=== PATIENT | male | born 1945 | race African-American/Black ===

== ENCOUNTER 2018-08-07 12:32 | Emergency (ER) | payer MEDICARE, MEDICAID ==
[~2018-08-07 12:32] MED LIST: ISOVUE-370 76%-LOCM 1 ML ONE
[2018-08-07 13:50] LABS: Hemoglobin 9.4 g/dL (14.0-18.0); Mean Corpuscular HGB CONC 31.6 g/dL (32.0-36.0); Mean Platelet Volume 8.7 fL (7.4-10.4); Platelet Count 191 thou/uL (130-400); RBC Distribution Width 14.7 % (11.5-14.5); Red Blood Cell (RBC) Count 3.25 mill/uL (4.70-6.10); White Blood Cell (WBC) Count 6.4 thou/uL (4.8-10.8)
[2018-08-07 14:21] LABS: ALT (SGPT) Less than 7 U/L (8-55); AST (SGOT) 28 U/L (5-34); Albumin 1.4 g/dL (3.4-4.8); Alkaline Phosphatase 124 U/L (40-150); Anion Gap 11 mmol/L (10-20); BUN (Urea Nitrogen) 14 mg/dL (8.4-25.7); Bilirubin, Total 0.8 mg/dL (0.2-1.2); Calc. Creatinine Clearance 0 mL/min (70-130); Calcium 7.3 mg/dL (7.8-10.44); Carbon Dioxide 30 mmol/L (23-31); Chloride 102 mmol/L (98-107); Estimated GFR-MDRD 69; Globulin 4.3 g/dL (2.4-3.5); Glucose 73 mg/dL (83-110); Potassium 4.1 mmol/L (3.5-5.1); Protein, Total 5.7 g/dL (5.8-8.1); Sodium 139 mmol/L (136-145)
[2018-08-07 14:37] LABS: Anisocytosis SLIGHT = 6-15 cells (100X) (0-5/hpf); Hypochromia SLIGHT = 6-15 cells (100X) (0-5/hpf); Lymphocytes 9 % (21-51); MDiff Complete? YES; Monocytes 4 % (0-10); Neutrophil 87 % (42-75); Platelet Morphology Comment Appears Adequate; Target Cells SLIGHT = 2-5 cells (100X) (0-1/hpf)
--- NOTE | 2018-08-07 15:37 | CT ---
T Abdomen Pelvis W Con: 08/07/2018 1:09 PM CLINICAL INFORMATION: Constipation. Closure colostomy site. No bowel movement, x3 days. COMPARISON: None. Procedure: Multiple contiguous axial images were obtained and a CT of the abdomen and pelvis with IV contrast. C oronal reformats were performed. FINDINGS: Lower Chest: Small right and trace left-sided pleural effusion. Consolidation of the right lower lobe may be due to atelectasis, aspiration or pneumonia. 2.4 x 1.8 cm mass in the left lower lobe. Vessels: There is a dissection involving the visualized descending thoracic aorta, abdominal aorta, a ortic bifurcation with extension of the dissection into the left common iliac artery and visualized e xternal iliac artery. Based on images, it is difficult to discern what is the true lumen versus the f alse lumen. Abdomen: Portal vein:Suboptimal evaluation Gallbladder: Surgically absent Liver: within normal limits. Pancreas: Mild atrophy. No obvious masses Spleen: within normal limits. Adrenals: Left adrenal gland is unremarkable. Hypodense mass associated with the right adrenal gland, measuring 3.1 x 1.7 cm with an attenuation coefficient of 27 Hounsfield units. Incomplete evaluation . Kidneys: Symmetric enhancement. No obstructive uropathy. 6 mm nonobstructing calculus in the right in trarenal collecting system. Peritoneum: No mass, lymphadenopathy, free air or free fluid. Bowel: Gastric mucosa, duodenum and multiple normal caliber small bowel loops are identified. Ileocec al junction is normal. Normal caliber appendix. Colon is unremarkable. Left lower quadrant diverticul ar colostomy is identified. No evidence of colonic obstruction. Mesentery and Retroperitoneum: No enlarged mesenteric or retroperitoneal lymph nodes. Abdominal Wall: Left lower quadrant colostomy. No significant peristomal hernia. Nonspecific strandin g of the subcutaneous fat. No evidence of abscess. Pelvis: Pelvis no mass, nephropathy, free air or free fluid. Bladder: within normal limits. Bones: within normal limits. IMPRESSION: 1. Dissection in the visualized aorta extending into the aortic bifurcation and left iliac artery as described above. 2. Mass in the left lower lobe, incompletely evaluated. 3. Consolidation in the right lower lobe which may be due to atelectasis, pneumonia or aspiration 4. Bilateral pleural effusion. 5. Diverting colostomy in the left lower quadrant without associated obstruction or abscess. 6. Indeterminate right adrenal nodule. 7 Results were discussed with Lore Bosch 08/07/2018 at 3:33 PM. Code CR Transcribed Date/Time: 08/07/2018 4:08 PM
--- NOTE | 2018-08-07 16:38 | CT ---
CT ANGIOGRAM THORAX WITH CONTRAST: 08/07/18 HISTORY: 73-year-old male with aortic dissection. TECHNIQUE: Injection of Isovue. Arterial bolus chasing technique scan performed from thoracic inlet to upper abdomen. Coronal and sagittal 3D MIP reconstructions. FINDINGS: There is intimal flap beginning at the most proximal aspect of the descending thoracic aorta, close t o the posterior aspect of the aortic arch. This propagates inferiorly, with dense contrast material i n both the true lumen and false lumen of the dissection. At the thoraco-abdominal junction, there is a change in orientation of the intimal flap. There is fusiform dilation of the descending thoracic ao rta with short axis diameter of approximately 4.1 cm. There is also fusiform dilation of the posterio r aspect of the aortic arch, with short axis diameter of 4.8 cm. There is no involvement by the disse ction of the origins of the left subclavian artery, left common carotid artery, or innominate artery. There is a large right pleural effusion occupying approximately three quarters volume of the right he mithoracic cavity. There is associated severe total passive atelectasis, of the right lower lobe, and milder passive atelectasis of the lateral aspect of the right upper lobe. There is a smaller left pl eural effusion that occupies approximately 15 to 20% volume of the left hemithoracic cavity. Abutting the anterior aspect of the left pleural effusion, there is an irregularly shaped low attenuation mas s-like structure in the left lower lobe measuring approximately 2.5 x 2.5 x 3.5 cm. There is colonic interposition in the right upper quadrant of the abdomen. No pericardial effusion. Nonspecific multip le mildly enlarged mediastinal lymph nodes. Central pulmonary arteries are dilated, raising the possi bility of pulmonary arterial hypertension. There is absence of blood flow in a left lower lobe pulmon amos vessel, beginning at the hilum. It is uncertain whether this is a pulmonary vein branch or pulmon amos artery branch. No thrombus in the central pulmonary arteries. IMPRESSION: 1. Jose type B, DeBakey type III aortic dissection. 2. 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 3. Bilateral pleural effusions, right much larger than left. 4. Total atelectasis of the right lower lobe. 5. A mass-like density in the left lower lobe abutting the small left pleural effusion. This radha l require further evaluation with PET scan, on an elective basis. POS: C
== END 2018-08-07 17:23 | disposition home or self-care (01) ==
LOC: ERS 12:32
DX: I71.02 Dissection of abdominal aorta (principal); Z43.3 Encounter for attention to colostomy; I10 Essential (primary) hypertension
CPT/HCPCS: 71275; 74177; 80053; 84484; 85025; 93005; Q9966

== ENCOUNTER 2018-08-26 17:13 | Inpatient (IN) | payer MEDICARE, MEDICAID ==
[2018-08-26 18:31] LABS: #Lymphocytes 1.9 thou/uL (1.20-3.40); #Neutrophils 5.1 thou/uL (1.40-6.50); %Basophils 0.5 % (0.0-1.0); %Eosinophils 0.5 % (0.0-10.0); %Lymphocytes 23.2 % (21.0-51.0); %Monocytes 12.2 % (0.0-10.0); %Neutrophils 63.5 % (42.0-75.0); Hemoglobin 8.6 g/dL (14.0-18.0); Mean Corpuscular HGB CONC 31.5 g/dL (32.0-36.0); Mean Corpuscular Hemoglobin 27.8 pg (27.0-31.0); Mean Corpuscular Volume 88.3 fL (78.0-98.0); Platelet Count 178 thou/uL (130-400); RBC Distribution Width 16.3 % (11.5-14.5)
--- NOTE | 2018-08-26 18:31 | RAD ---
CHEST ONE VIEW: History: Hypertension, edema in the hands. FINDINGS: There is a moderate loculated right sided pleural effusion. Left lung is clear. There is mild cardiom egaly. No acute osseous abnormality is evident. IMPRESSION: 1. Moderate right pleural effusion with mild loculation. 2. Right basilar opacity possibly related to volume loss. 3. Persistent mild cardiomegaly. POS: BH
[2018-08-26] MEDS ORDERED: Sodium Chloride 0.9% 100 ML ONE (18:48)
[2018-08-26] MEDS ORDERED: Piperacillin/Tazobactam 4.5 GM VIAL ONE ×2 (18:48→19:37)
[2018-08-26] MEDS ORDERED: Vancomycin HCl 1.75 GM in Sodium Chloride 0.9% 500 ML IVPB SCH (19:00)
[2018-08-26 19:09] LABS: ALT (SGPT) 16 U/L (8-55); AST (SGOT) 24 U/L (5-34); Albumin 1.4 g/dL (3.4-4.8); Alkaline Phosphatase 159 U/L (40-150); Anion Gap 12 mmol/L (10-20); BUN (Urea Nitrogen) 29 mg/dL (8.4-25.7); Bilirubin, Total 1.7 mg/dL (0.2-1.2); CK (CPK) 83 U/L (30-200); Calc. Creatinine Clearance 0 mL/min (70-130); Calcium 7.3 mg/dL (7.8-10.44); Carbon Dioxide 29 mmol/L (23-31); Chloride 93 mmol/L (98-107); Estimated GFR-MDRD 36; Globulin 4.3 g/dL (2.4-3.5); Glucose 64 mg/dL (83-110); Potassium 3.3 mmol/L (3.5-5.1); Protein, Total 5.7 g/dL (5.8-8.1); Sodium 131 mmol/L (136-145)
[2018-08-26] MEDS ORDERED: Acetaminophen 325 MG TAB PO PRN (22:13)
[2018-08-26] MEDS ORDERED: Sodium Chloride 0.9% 500 ML IV SCH (23:00)
[2018-08-26] MEDS: Lactated Ringer's 1,000 ML IV SCH ×2 (23:06→23:25)
[2018-08-26] MEDS ORDERED: Sodium Chloride 0.9% 1,000 ML IV SCH (23:45)
[2018-08-26] MEDS ORDERED: cefTRIAXone\\ROCEPHIN 1 GM in Sodium Chloride 0.9% 100 ML IVPB SCH (23:45)
[2018-08-27 01:39] LABS: Lactic Acid 2.1 mmol/L (0.5-2.2)
[2018-08-27] MEDS ORDERED: Azithromycin 500 MG in Sodium Chloride 0.9% 250 ML 250 ML IVPB SCH (02:00)
--- NOTE | 2018-08-27 02:23 | HP ---
CHIEF COMPLAINT: Wheezing. HISTORY OF PRESENT ILLNESS: This patient is a 73-year-old male, who presented via the emergency department. The patient has some difficulty explaining his full history, but apparently a couple of years ago, he had some cardiac issues which he describes as a "tear" in his heart. He reports that he was referred to [place] , was discharged back home and ended up going back to [place] again for the same problem. Subsequent to that, the patient reports that the next thing he remembered was he was in a rehab in [place]. He has been in and out of the hospital ever since. He reports that he had to have a diverting colostomy in order to try to help heal a significant decubitus ulcer of the sacrum and subsequently had some complication with that. He describes as it trying to close up. He had [facility] come out to evaluate and work with him today with a wound VAC on his decubitus. He noted that he had been feeling like he had some wheezing and he asked them to evaluate him. They felt he was wheezing as well. They called his PCP, Dr. Dylan Franco, who sent him to the emergency department. The patient denies any fevers, chills, chest pains. He reports he only has a very mild cough. REVIEW OF SYSTEMS: Notable for a frequent nocturia. Other than that, all systems were reviewed, all pertinent positives and negatives noted in the HPI. PAST MEDICAL HISTORY: Notable for hypertension, degenerative joint disease, "tear" in his heart, sacral decubitus ulcer. PAST SURGICAL HISTORY: Colostomy. FAMILY HISTORY: Brother with diabetes. His mother when he was 4 weeks old. His father left home. He does not know anything about him. SOCIAL HISTORY: The patient quit smoking 4 to 5 years ago, but states he never smoked heavily. Denies alcohol. He is . He is full code. His sister Marva is his surrogate decision maker should that become necessary. ALLERGIES: NONE. CURRENT MEDICATIONS: 1. Torsemide 20 mg daily. 2. Potassium 10 mEq daily. 3. Cipro 500 b.i.d. 4. Protonix 40 mg daily. 5. Tylenol No. 3 p.r.n. 6. Reglan 10 mg q.i.d. 7. Folic acid 1 mg p.o. daily. 8. Proscar 5 mg daily. PHYSICAL EXAMINATION: VITAL SIGNS: Temperature 97.8, pulse 90, respirations 87, O2 saturation 100% on room air, and blood pressure 99/52. GENERAL APPEARANCE: Age-appropriate male, in no distress. He is awake, alert, oriented, pleasant, and cooperative. HEENT: PERRL. No OP lesions. NECK: Supple and symmetric. HEART: Regular rate and rhythm without murmurs, gallops, or rubs. LUNGS: Reveal only scattered rales. I do not appreciate any wheezing right now. ABDOMEN: Soft, nontender, and nondistended. Positive bowel sounds. No masses. No organomegaly. Left lower quadrant stoma in place appears healthy. EXTREMITIES: He has generalized atrophy and some mild puffy, nonpitting edema of the upper and lower extremities. He does have some movement in his lower extremities, but minimal, just generally weak. NEUROLOGIC: Weakness is noted. PSYCHIATRIC: The patient has normal affect and behavior. LABORATORY DATA AND DIAGNOSTIC STUDIES: White count 8.0, hemoglobin 8.6, and platelets 178. Sodium 131, potassium 3.3, chloride 93, CO2 is 29, BUN 29, creatinine is 2.17, glucose 64, lactic acid is 2.2, calcium 7.3, total bilirubin 1.7, AST 24, ALT 16, and alkaline phosphatase 159. Troponin 0.02. BNP 95.8, albumin 1.4. Chest x-ray shows moderate right pleural effusion with mild loculation, right basilar opacity, possibly related to volume loss and persistent cardiomegaly. IMPRESSION AND PLAN: 1. Probable loculated effusion and pneumonia on the right side. The patient had some borderline low blood pressures in the emergency department, but he does not appear to be febrile and does not have a significant leukocytosis. We will continue with antibiotics. We will change him to Rocephin and azithromycin for community-acquired pneumonia and follow up on the x-ray. 2. Hypotension in the emergency department. He appears to have some acute renal insufficiency, unclear if this may be some degree of dehydration. He has received fluid bolus. We will continue to hydrate and follow his blood pressures. 3. Acute renal insufficiency on chronic kidney disease. The patient appears to have chronic kidney disease, stage 3. His baseline creatinine is typically around 1.2. It is now significantly elevated and his creatinine clearance has dropped off. We will hydrate and see how he responds. 4. Anemia. The patient appears to have chronic anemia and his hemoglobin is inline with his previous numbers. 5. Dehydration. Hydrate. Follow labs and blood pressure. 6. Hypoalbuminemia, unclear etiology. The patient reports that he has been eating and drinking well. May be related to his chronic wound. We will continue monitor his intake. 7. Hypokalemia. We will give p.o. repletion. 8. Hyponatremia, likely due to renal insufficiency and some dehydration on diuretics. These are being held and the patient is being hydrated. We will continue to follow. Job ID: [id number] [facility]
[2018-08-27] MEDS: Acetaminophen/Codeine 30-300mg Tablet PO PRN ×2 (05:41→22:15)
[2018-08-27 06:44] LABS: #Eosinphils 0.1 thou/uL (0.0-0.7); #Lymphocytes 1.8 thou/uL (1.20-3.40); #Monocytes 1.1 thou/uL (0.11-0.59); #Neutrophils 5.4 thou/uL (1.40-6.50); %Basophils 0.6 % (0.0-1.0); %Eosinophils 1.2 % (0.0-10.0); %Lymphocytes 21.2 % (21.0-51.0); %Monocytes 12.8 % (0.0-10.0); %Neutrophils 64.2 % (42.0-75.0); Hemoglobin 7.5 g/dL (14.0-18.0); Mean Corpuscular HGB CONC 32.3 g/dL (32.0-36.0); Mean Corpuscular Hemoglobin 28.5 pg (27.0-31.0); Mean Corpuscular Volume 88.1 fL (78.0-98.0); Mean Platelet Volume 8.6 fL (7.4-10.4); Platelet Count 156 thou/uL (130-400); RBC Distribution Width 16.5 % (11.5-14.5); Red Blood Cell (RBC) Count 2.63 mill/uL (4.70-6.10); White Blood Cell (WBC) Count 8.4 thou/uL (4.8-10.8)
[2018-08-27 06:58] LABS: Anion Gap 13 mmol/L (10-20); BUN (Urea Nitrogen) 30 mg/dL (8.4-25.7); Calc. Creatinine Clearance 43 mL/min (70-130); Calcium 6.8 mg/dL (7.8-10.44); Carbon Dioxide 26 mmol/L (23-31); Chloride 97 mmol/L (98-107); Estimated GFR-MDRD 40; Glucose 64 mg/dL (83-110); Potassium 3.2 mmol/L (3.5-5.1); Sodium 133 mmol/L (136-145)
[2018-08-27] MEDS ORDERED: Bisacodyl 5 MG TAB PO PRN (07:23)
[2018-08-27] MEDS ORDERED: Acetaminophen 500 MG TAB PO PRN (07:23)
[2018-08-27] MEDS ORDERED: Artificial Tears 18 DROP/0.9 ML EA EYE PRN (07:23)
[2018-08-27] MEDS ORDERED: Loperamide HCl 2 MG CAP PO PRN (07:23)
[2018-08-27] MEDS ORDERED: Cepastat Lozenges 1 LOZ PO PRN (07:23)
[2018-08-27] MEDS ORDERED: Loratadine 10 MG TAB PO PRN (07:23)
[2018-08-27] MEDS ORDERED: Metoclopramide HCl 10 MG/2 ML VIAL IVP PRN (07:23)
[2018-08-27] MEDS ORDERED: Calcium Carbonate 500 MG ChewTAB PO PRN (07:23)
[2018-08-27] MEDS ORDERED: Eucerin (Mineral Oil/Petrolatum,White) 30 gm Jar TOP PRN (07:23)
[2018-08-27] MEDS ORDERED: Temazepam 15 MG CAP PO PRN (07:23)
[2018-08-27] MEDS ORDERED: Sodium Chloride 0.65% Nasal 44 ML BOT EA NARE PRN (07:23)
[2018-08-27] MEDS ORDERED: hydrALAZINE 20 MG/ML VIAL SLOW IVP PRN (07:23)
[2018-08-27 08:10] LABS: Magnesium 1.3 mg/dL (1.6-2.6); Phosphorus 3.9 mg/dL (2.3-4.7)
[2018-08-27] MEDS: Potassium Chloride 30 MEQ in Sodium Chloride 0.9% 1,000 ML IV SCH ×2 (09:02→21:48)
[2018-08-27] MEDS: Folic Acid 1 MG TAB PO SCH (09:08)
[2018-08-27] MEDS: Enoxaparin Sodium 30 MG/0.3 ML SYRINGE SC SCH (09:08)
[2018-08-27] MEDS: Potassium Chloride 10 MEQ TAB PO SCH (09:08)
[2018-08-27] MEDS: Finasteride 5 MG TAB PO SCH (09:08)
[2018-08-27] MEDS: Metoclopramide HCl 10 MG TAB PO SCH ×4 (09:09→19:59)
[2018-08-27] MEDS: Pantoprazole 40 MG GRANULES PACKET PO SCH (09:09)
[2018-08-27] MEDS ORDERED: Potassium Chloride 20 MEQ TAB PO SCH (09:30)
[2018-08-27] MEDS ORDERED: Potassium Phosphate 30 MMOL in Sodium Chloride 0.9% 500 ML IVPB SCH (09:30)
[2018-08-27] MEDS ORDERED: Magnesium Sulfate 3 GM in Sodium Chloride 0.9% 100 ML IVPB SCH (09:30)
[2018-08-27] MEDS: Cefepime 1 GM in Sodium Chloride 0.9% 100 ML IVPB SCH ×2 (09:54→19:59)
--- NOTE | 2018-08-27 10:05 | CON ---
DATE OF CONSULTATION: HISTORY OF PRESENT ILLNESS: Manoj Salmon is a 73-year-old gentleman from [place], [place], who presented with wheezing for the last several days. He was here about 2 weeks ago with abdominal pain where CT abdomen and chest were done. He has a colostomy in place since February 2018. He said he has limitation to activity. He was then eventually discharged home and then he comes back to the ER with some wheezing. His CT abdomen at that time showed a mass in the left lower lobe, consolidation in the right lower lobe, atelectasis, pneumonia, bilateral pleural effusion, and a colostomy in place. He has smoked a pack a day for most of his life. Quit smoking 5 years ago. PAST MEDICAL HISTORY: Pertinent for hypertension, COPD, severe deconditioning, and reflux. PAST SURGICAL HISTORY: As outlined includes previous decubitus. HOME MEDICATIONS: Includes Demadex 20, potassium, Reglan 10 four times a day, Proscar 5 and Protonix. REVIEW OF SYSTEMS: Otherwise difficult to obtain, but otherwise 10 point negative. PHYSICAL EXAMINATION: VITAL SIGNS: Saturations 100% on room air, respiratory rate 18, temperature 97, pulse 88, blood pressure 90/55. CHEST: Decreased breath sounds. No wheezing. CARDIAC: Normal S1, S2. No gallops. ABDOMEN: No masses. LABORATORY DATA: Creatinine is 2.0, H and H 7.5 and 25, platelet count is normal. IMPRESSION: 1. Right pleural effusion, parapneumonic versus congestive heart failure. 2. Left lower lung mass. 3. Colostomy. 4. Chronic anemia. 5. Azotemia. PLAN: Continue present antibiotics. Await results of the echo. Consider thoracentesis of the right chest. Regarding the left lung mass, further workup when he is stable. This option would be a CT-guided biopsy. Consider PET scan on outpatient basis. Job ID: [id number]
--- NOTE | 2018-08-27 10:36 | RAD ---
EXAM: XR Chest Rt Lat Decub Only PROVIDED CLINICAL HISTORY: Right pleural effusion. COMPARISON: Portable upright AP chest x-ray on 08/26/2018 FINDINGS: There is limited evaluation of the most lateral right chest due to multiple overlying structures and secondary to difficulty in positioning the patient. However, there is evidence of a right pleural effusion and elevation the right hemidiaphragm. Although the most lateral chest is difficult to adequ ately evaluate, there is suggestion of layering of pleural fluid along the right lateral chest. Parenchymal changes are seen at the left lung base which may be related to atelectasis versus pneumon itis. Cardiac silhouette is magnified by projection. Pulmonary vasculature is within normal limits IMPRESSION: Limited evaluation due to difficulty in positioning the patient, but again noted is elevation of the right hemidiaphragm with right pleural effusion. However, although there is limited positioning, images suggest that there is pleural fluid layering along the lateral right chest.
[2018-08-27] MEDS ORDERED: Dexamethasone 4 mg/ml Vial SLOW IVP SCH (12:45)
--- NOTE | 2018-08-27 13:45 | PDOC.PN ---
- Subjective Encounter Start Date: 08/27/18 Encounter Start Time: 10:15 -: old records requested/rev pt has low BP but he is asymptomatic, he denies dizziness, chest pain or dyspnea - Objective Resuscitation Status - Order Detail: 08/26/18 23:35 Resuscitation Status Routine Resuscitation Status: FULL: Full Resuscitation MAR Reviewed: Yes Vital Signs & Weight: Vital Signs (12 hours) Temp Pulse Resp BP Pulse Ox 08/27/18 13:29 85 80/47 L 99 08/27/18 12:26 85 77/41 L 08/27/18 12:00 68/34 L 08/27/18 11:21 106/55 L 08/27/18 10:54 97.7 F 88 15 81/51 L 96 08/27/18 08:34 100 08/27/18 08:00 97.8 F 88 18 90/55 L 100 08/27/18 04:25 98.6 F 87 18 95/54 L 99 Weight Admit Weight 196 lb 1.6 oz Weight 201 lb 1.6 oz Result Diagrams: 08/27/18 06:09 08/27/18 06:09 Radiology Reviewed by me: Yes EKG Reviewed by me: Yes Phys Exam - Physical Examination Constitutional: NAD HEENT: PERRLA, moist MMs, sclera anicteric Neck: no JVD, supple Respiratory: no wheezing, no rales, no rhonchi reduced air entry at base Cardiovascular: RRR, no significant murmur, no rub Gastrointestinal: soft, non-tender, no distention, positive bowel sounds Musculoskeletal: pulses present, edema present Neurological: non-focal, moves all 4 limbs Lymphatic: no nodes Psychiatric: normal affect Skin: normal turgor Deviation from normal: wound vac in place Dx/Plan (1) Acute kidney failure Status: Acute (2) Anemia, normocytic normochromic Code(s): D64.9 - ANEMIA, UNSPECIFIED Status: Acute (3) Bilateral pleural effusion Code(s): J90 - PLEURAL EFFUSION, NOT ELSEWHERE CLASSIFIED Status: Acute (4) Consolidation of right lower lobe of lung Code(s): J18.1 - LOBAR PNEUMONIA, UNSPECIFIED ORGANISM Status: Acute (5) Decubitus ulcer Code(s): L89.90 - PRESSURE ULCER OF UNSPECIFIED SITE, UNSPECIFIED STAGE Status : Acute (6) Hypoalbuminemia Code(s): E88.09 - OT DISORDERS OF PLASMA-PROTEIN METABOLISM, NEC Status: Acute (7) Hypokalemia Code(s): E87.6 - HYPOKALEMIA Status: Acute (8) Hypomagnesemia Code(s): E83.42 - HYPOMAGNESEMIA Status: Acute (9) Hyponatremia Code(s): E87.1 - HYPO-OSMOLALITY AND HYPONATREMIA Status: Acute (10) Hypotension Status: Acute (11) Left lower lobe pulmonary nodule Code(s): R91.1 - SOLITARY PULMONARY NODULE Status: Acute (12) Type 2 dissection of thoracic aorta Code(s): I71.01 - DISSECTION OF THORACIC AORTA Status: Acute (13) Colostomy in place Code(s): Z93.3 - COLOSTOMY STATUS Status: Chronic (14) Bedbound Code(s): Z74.01 - BED CONFINEMENT STATUS Status: Chronic - Plan cont current plan of care, continue antibiotics * monitor renal function * check urine protein and creatinine ratio * consult pulmonary * consult CV surgery for dissection type-2. * get echo today * wound care * case coordinator for placement * replace potassium with IVF * replace magnesium * continue cefepime and levaquin * nutritional support * give decadron * check cortisol Review of Systems - Review of Systems Constitutional: weakness. negative: fever, chills, sweats, malaise, other Eyes: negative: Pain, Vision Change, Conjunctivae Inflammation, Eyelid Inflammation, Redness, Other ENT: negative: Ear Pain, Ear Discharge, Nose Pain, Nose Discharge, Nose Congestion, Mouth Pain, Mouth Swelling, Throat Pain, Throat Swelling, Other Respiratory: negative: Cough, Dry, Shortness of Breath, Hemoptysis, SOB with Excertion, Pleuritic Pain, Sputum, Wheezing Cardiovascular: edema. negative: chest pain, palpitations, orthopnea, paroxysmal nocturnal dyspnea, light headedness, other Genitourinary: negative: Dysuria, Frequency, Incontinence, Hematuria, Retention , Other Musculoskeletal: negative: Neck Pain, Shoulder Pain, Arm Pain, Back Pain, Hand Pain, Leg Pain, Foot Pain, Other Skin: negative: Rash, Lesions, Usman, Bruising, Other - Medications/Allergies Allergies/Adverse Reactions: Allergies Allergy/AdvReac Type Severity Reaction Status Date / Time No Known Drug Allergies Allergy Verified 08/26/18 22:55 Medications: Current Medications Acetaminophen (Tylenol) 500 mg PO Q6H PRN PRN Reason: Mild Pain (1-3) Acetaminophen/Codeine Phosphate (Tylenol #3) 1 tab PO Q6H PRN PRN Reason: PAIN 4-10 Last Admin: 08/27/18 05:41 Dose: 1 tab Artificial Tears (Tears Naturale) 2 drop EA EYE PRN PRN PRN Reason: Dry Eyes Bisacodyl (Dulcolax) 10 mg PO DAILYPRN PRN PRN Reason: Constipation Calcium Carbonate (Tums) 1,000 mg PO Q4H PRN PRN Reason: Heartburn or Indigestion Dexamethasone (Decadron) 4 mg SLOW IVP NOW [facility] Stop: 08/27/18 14:00 Last Admin: 08/27/18 13:15 Dose: 4 mg Enoxaparin Sodium (Lovenox) 30 mg SC 0900 [facility] Last Admin: 08/27/18 09:08 Dose: 30 mg Finasteride (Proscar) 5 mg PO DAILY [facility] Last Admin: 08/27/18 09:08 Dose: 5 mg Folic Acid (Folvite) 1 mg PO DAILY [facility] Last Admin: 08/27/18 09:08 Dose: 1 mg Guaifenesin (Robitussin Sf) 200 mg PO Q4H PRN PRN Reason: Cough Hydralazine HCl (Apresoline) 10 mg SLOW IVP Q4H PRN PRN Reason: SBP > 180 and HR < 70 Potassium Chloride 30 meq/ (Sodium Chloride) 1,015 mls @ 75 mls/hr IV .[id number] [facility] Last Admin: 08/27/18 09:02 Dose: 1,015 mls Cefepime HCl 1 gm/ Sodium (Chloride) 100 mls @ 200 mls/hr IVPB Q12HR [facility] Last Admin: 08/27/18 09:54 Dose: 100 mls Levofloxacin 250 mg/ Device 50 mls @ 100 mls/hr IVPB Q24HR [facility] Last Admin: 08/27/18 09:03 Dose: 50 mls Loperamide HCl (Imodium) 2 mg PO PRN PRN PRN Reason: Diarrhea/Loose Stools Loratadine (Claritin) 10 mg PO DAILYPRN PRN PRN Reason: Sinus Symptoms Metoclopramide HCl (Reglan) 10 mg PO QID [facility] Last Admin: 08/27/18 13:15 Dose: 10 mg Metoclopramide HCl (Reglan) 5 mg IVP Q4H PRN PRN Reason: Nausea Midodrine (Proamatine) 5 mg PO TID [facility] Mineral Oil/White Petrolatum (Eucerin Cream) 0 gm TOP BIDPRN PRN PRN Reason: Dry Skin Pantoprazole Sodium (Protonix) 40 mg PO DAILY [facility] Last Admin: 08/27/18 09:09 Dose: 40 mg Potassium Chloride (Klor-Con 10) 10 meq PO DAILY [facility] Last Admin: 08/27/18 09:08 Dose: 10 meq Sodium Chloride ([place] Nasal [place] 0.65%) 0 ml EA NARE QIDPRN PRN PRN Reason: Nasal Congestion Sodium Chloride (Flush - Normal Saline) 10 ml IVF Q12HR [facility] Last Admin: 08/27/18 09:09 Dose: 10 ml Sodium Chloride (Flush - Normal Saline) 10 ml IVF PRN PRN PRN Reason: Saline Flush Temazepam (Restoril) 15 mg PO HSPRN PRN PRN Reason: Insomnia Throat Lozenges (Cepastat Lozenges) 1 mamadou PO Q2H PRN PRN Reason: Sore Throat
[2018-08-27 15:04] LABS: Bilirubin Small (Negative); Blood, Urine Large (Negative); Clarity CLOUDY (Clear); Glucose, Urine (Dipstick) Negative (Negative); Leukocyte Large (Negative); Nitrite Negative (Negative); Protein, Urine (Dipstick) Trace mg/dL (Neg-Trace); Specific Gravity, Urine 1.018 (1.002-1.036)
[2018-08-27 15:07] LABS: Pathc Cast-AUWi Flag 1.08 (0-2.49); Squamous Epithelial 0-3 HPF (0-3); Yeast-AUWi Flag 180.5 (0-25.0)
[2018-08-27 15:21] LABS: Creatinine, Urine 146.11 mg/dL (63-166)
[2018-08-27 15:24] LABS: Bacteria/HPF 3+ HPF (None Seen); Hyaline Casts/LPF 0-3 HYALINE CAST LPF (0-3 Hyaline); Yeast-All Forms None Seen HPF (None Seen)
[2018-08-27] MEDS: Midodrine HCl 5 MG TAB PO SCH ×2 (15:24→19:59)
[2018-08-27] MEDS: Diabetic Tussin 200 MG/10 ML UDCUP PO PRN (19:59)
--- NOTE | 2018-08-27 22:25 | CON ---
DATE OF CONSULTATION: 08/27/2018 REQUESTING PHYSICIAN: Dr. Dumont. CHIEF COMPLAINT: Wheezing. HISTORY OF PRESENT ILLNESS: The patient is a 73-year-old male with a known type 3 aortic dissection, who presented with several days of wheezing. He has been admitted to the hospital and overnight he feels much better. He denies any back pain, and as when I saw him in May of this year, his blood pressures have been under excellent control overnight and through today, his systolic blood pressures have been from about 95 to 110. PAST MEDICAL HISTORY: Significant for hypertension. He had his aortic dissection in January of 2018. During his recovery from that illness, apparently became quite debilitated and underwent a diverting colostomy to deal with a decubitus ulcer. MEDICATIONS: His home medications are listed as; 1. Demadex. 2. Potassium. 3. Protonix. 4. Reglan. 5. Folate. 6. Proscar. 7. Cipro. 8. Tylenol No. 3. When I saw him in May, he was also on Lopressor, Norvasc, and hydralazine. ALLERGIES: HE DENIES ANY MEDICAL ALLERGIES. FAMILY HISTORY: Significant for diabetes in a brother. SOCIAL HISTORY: He smoked up until 4 or 5 years ago. PHYSICAL EXAMINATION: GENERAL: He is a pleasant black gentleman in no distress and appears to feel fine. VITAL SIGNS: Temperature is 97.4, heart rate is 86, blood pressure 106/55. LUNGS: Clear breath sounds. HEART: Regular rate and rhythm. IMAGING: His chest x-ray shows a right-sided effusion with suggestion of mass on the left chest. IMPRESSION AND RECOMMENDATIONS: There is really nothing I have to add on this patient's care. I presume he is being followed in [facility] where his dissection was originally managed. Job ID: [id number]
[2018-08-28 06:47] LABS: INR-International Normal Ratio 1.5; Prothrombin Time 17.7 SEC (12.0-14.7)
[2018-08-28 06:48] LABS: #Lymphocytes 0.9 thou/uL (1.20-3.40); #Monocytes 0.7 thou/uL (0.11-0.59); #Neutrophils 5.5 thou/uL (1.40-6.50); %Basophils 0.2 % (0.0-1.0); %Eosinophils 0.3 % (0.0-10.0); %Lymphocytes 12.6 % (21.0-51.0); %Monocytes 9.9 % (0.0-10.0); %Neutrophils 77.1 % (42.0-75.0); Hemoglobin 7.5 g/dL (14.0-18.0); Mean Corpuscular HGB CONC 32.3 g/dL (32.0-36.0); Mean Corpuscular Hemoglobin 28.5 pg (27.0-31.0); Mean Corpuscular Volume 88.4 fL (78.0-98.0); Mean Platelet Volume 8.1 fL (7.4-10.4); Platelet Count 186 thou/uL (130-400); RBC Distribution Width 16.4 % (11.5-14.5); Red Blood Cell (RBC) Count 2.62 mill/uL (4.70-6.10); White Blood Cell (WBC) Count 7.2 thou/uL (4.8-10.8)
[2018-08-28 07:20] LABS: ALT (SGPT) 17 U/L (8-55); AST (SGOT) 17 U/L (5-34); Albumin 1.3 g/dL (3.4-4.8); Alkaline Phosphatase 144 U/L (40-150); Anion Gap 10 mmol/L (10-20); BUN (Urea Nitrogen) 29 mg/dL (8.4-25.7); Bilirubin, Total 0.6 mg/dL (0.2-1.2); Calc. Creatinine Clearance 44 mL/min (70-130); Calcium 7.1 mg/dL (7.8-10.44); Carbon Dioxide 26 mmol/L (23-31); Chloride 102 mmol/L (98-107); Estimated GFR-MDRD 41; Globulin 3.7 g/dL (2.4-3.5); Glucose 135 mg/dL (83-110); Potassium 4.2 mmol/L (3.5-5.1); Sodium 134 mmol/L (136-145)
[2018-08-28] MEDS: Cefepime 1 GM in Sodium Chloride 0.9% 100 ML IVPB SCH ×2 (08:58→20:29)
[2018-08-28] MEDS: Finasteride 5 MG TAB PO SCH (09:04)
[2018-08-28] MEDS: Midodrine HCl 5 MG TAB PO SCH ×3 (09:04→20:29)
[2018-08-28] MEDS: Metoclopramide HCl 10 MG TAB PO SCH ×4 (09:04→20:29)
[2018-08-28] MEDS: Enoxaparin Sodium 30 MG/0.3 ML SYRINGE SC SCH (09:04)
[2018-08-28] MEDS: Potassium Chloride 10 MEQ TAB PO SCH (09:04)
[2018-08-28] MEDS: Pantoprazole 40 MG GRANULES PACKET PO SCH (09:05)
[2018-08-28] MEDS: Folic Acid 1 MG TAB PO SCH (09:05)
[2018-08-28] MEDS: Diabetic Tussin 200 MG/10 ML UDCUP PO PRN (09:15)
[2018-08-28] MEDS: Acetaminophen/Codeine 30-300mg Tablet PO PRN ×2 (09:15→15:21)
--- NOTE | 2018-08-28 09:44 | PRG ---
DATE OF SERVICE: 08/28/2018 SUBJECTIVE: He is doing better. He wants to go home. IMAGING DATA: He had an echo done, which showed normal EF. His x-ray shows small pleural effusion. OBJECTIVE: VITAL SIGNS: He is afebrile. His temperature is 98, pulse 77, respiratory rate 18, saturations are 98% on room air, blood pressure 90/61. CHEST: Decreased breath sounds. No wheezing. CARDIAC: Normal S1, S2. No gallops. ABDOMEN: No masses. LABORATORY DATA: Creatinine 1.97. White count 7000. IMPRESSION AND PLAN: Bilateral pleural effusion. No fever. Aortic dissection, chronic. Advanced age. I will switch him to oral antibiotics. He can be transferred back to the [place] [facility]. Job ID: [id number]
--- NOTE | 2018-08-28 14:14 | PDOC.PN ---
- Subjective Encounter Start Date: 08/28/18 Encounter Start Time: 08:15 Patient seen and examined. No new complaints. No overnight events - Objective Resuscitation Status - Order Detail: 08/26/18 23:35 Resuscitation Status Routine Resuscitation Status: FULL: Full Resuscitation MAR Reviewed: Yes Vital Signs & Weight: Vital Signs (12 hours) Temp Pulse Resp BP BP BP Pulse Ox 08/28/18 12:55 98.2 F 85 18 106/50 L 98 08/28/18 10:05 74/38 L 99/55 L 08/28/18 08:00 99 08/28/18 07:50 98.6 F 77 18 90/61 99 08/28/18 05:05 97.6 F 82 20 88/53 L 99 Weight Admit Weight 196 lb 1.6 oz Weight 202 lb 3.2 oz I&O: 08/27/18 08/28/18 08/29/18 06:59 06:59 06:59 Intake Total 1540 Output Total 450 Balance 1090 Result Diagrams: 08/28/18 06:18 08/28/18 06:18 EKG Reviewed by me: Yes Phys Exam - Physical Examination Constitutional: NAD HEENT: PERRLA, moist MMs, sclera anicteric Neck: no JVD, supple Respiratory: no wheezing, no rales, no rhonchi Cardiovascular: RRR, no significant murmur, no rub Gastrointestinal: soft, non-tender, no distention, positive bowel sounds Musculoskeletal: no edema, pulses present Neurological: moves all 4 limbs Lymphatic: no nodes Psychiatric: normal affect, A&O x 3 Skin: normal turgor Deviation from normal: wound vac+ Dx/Plan (1) Acute kidney failure Status: Acute (2) Anemia, normocytic normochromic Code(s): D64.9 - ANEMIA, UNSPECIFIED Status: Acute (3) Bilateral pleural effusion Code(s): J90 - PLEURAL EFFUSION, NOT ELSEWHERE CLASSIFIED Status: Acute (4) Consolidation of right lower lobe of lung Code(s): J18.1 - LOBAR PNEUMONIA, UNSPECIFIED ORGANISM Status: Acute (5) Decubitus ulcer Code(s): L89.90 - PRESSURE ULCER OF UNSPECIFIED SITE, UNSPECIFIED STAGE Status : Acute Qualifiers: Pressure injury location: sacral region Pressure injury stage: stage 4 Qualified Code(s): L89.154 - Pressure ulcer of sacral region, stage 4 Comment: present on admission (6) Hypoalbuminemia Code(s): E88.09 - OTH DISORDERS OF PLASMA-PROTEIN METABOLISM, NEC Status: Acute (7) Hypokalemia Code(s): E87.6 - HYPOKALEMIA Status: Acute (8) Hypomagnesemia Code(s): E83.42 - HYPOMAGNESEMIA Status: Acute (9) Hyponatremia Code(s): E87.1 - HYPO-OSMOLALITY AND HYPONATREMIA Status: Acute (10) Hypotension Status: Acute (11) Left lower lobe pulmonary nodule Code(s): R91.1 - SOLITARY PULMONARY NODULE Status: Acute (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 amyloidosis * will repeat labs tomorrow * will benefit with placement * pulmonary following Review of Systems - Review of Systems ENT: negative: Ear Pain, Ear Discharge, Nose Pain, Nose Discharge, Nose Congestion, Mouth Pain, Mouth Swelling, Throat Pain, Throat Swelling, Other Respiratory: negative: Cough, Dry, Shortness of Breath, Hemoptysis, SOB with Excertion, Pleuritic Pain, Sputum, Wheezing Cardiovascular: negative: chest pain, palpitations, orthopnea, paroxysmal nocturnal dyspnea, edema, light headedness, other Gastrointestinal: negative: Nausea, Vomiting, Abdominal Pain, Diarrhea, Constipation, Melena, Hematochezia, Other Genitourinary: negative: Dysuria, Frequency, Incontinence, Hematuria, Retention , Other Musculoskeletal: negative: Neck Pain, Shoulder Pain, Arm Pain, Back Pain, Hand Pain, Leg Pain, Foot Pain, Other - Medications/Allergies Allergies/Adverse Reactions: Allergies Allergy/AdvReac Type Severity Reaction Status Date / Time No Known Drug Allergies Allergy Verified 08/26/18 22:55 Medications: Current Medications Acetaminophen (Tylenol) 500 mg PO Q6H PRN PRN Reason: Mild Pain (1-3) Acetaminophen/Codeine Phosphate (Tylenol #3) 1 tab PO Q6H PRN PRN Reason: PAIN 4-10 Last Admin: 08/28/18 09:15 Dose: 1 tab Artificial Tears (Tears Naturale) 2 drop EA EYE PRN PRN PRN Reason: Dry Eyes Bisacodyl (Dulcolax) 10 mg PO DAILYPRN PRN PRN Reason: Constipation Calcium Carbonate (Tums) 1,000 mg PO Q4H PRN PRN Reason: Heartburn or Indigestion Enoxaparin Sodium (Lovenox) 30 mg SC 0900 [facility] Last Admin: 08/28/18 09:04 Dose: 30 mg Finasteride (Proscar) 5 mg PO DAILY [facility] Last Admin: 08/28/18 09:04 Dose: 5 mg Folic Acid (Folvite) 1 mg PO DAILY [facility] Last Admin: 08/28/18 09:05 Dose: 1 mg Guaifenesin (Robitussin Sf) 200 mg PO Q4H PRN PRN Reason: Cough Last Admin: 08/28/18 09:15 Dose: 200 mg Hydralazine HCl (Apresoline) 10 mg SLOW IVP Q4H PRN PRN Reason: SBP > 180 and HR < 70 Potassium Chloride 30 meq/ (Sodium Chloride) 1,015 mls @ 75 mls/hr IV .[id number] [facility] Last Admin: 08/27/18 21:48 Dose: 1,015 mls Cefepime HCl 1 gm/ Sodium (Chloride) 100 mls @ 200 mls/hr IVPB Q12HR [facility] Last Admin: 08/28/18 08:58 Dose: 100 mls Levofloxacin 250 mg/ Device 50 mls @ 100 mls/hr IVPB Q24HR [facility] Last Admin: 08/28/18 09:22 Dose: 50 mls Loperamide HCl (Imodium) 2 mg PO PRN PRN PRN Reason: Diarrhea/Loose Stools Loratadine (Claritin) 10 mg PO DAILYPRN PRN PRN Reason: Sinus Symptoms Metoclopramide HCl (Reglan) 10 mg PO QID [facility] Last Admin: 08/28/18 09:04 Dose: 10 mg Metoclopramide HCl (Reglan) 5 mg IVP Q4H PRN PRN Reason: Nausea Midodrine (Proamatine) 5 mg PO TID [facility] Last Admin: 08/28/18 09:04 Dose: 5 mg Mineral Oil/White Petrolatum (Eucerin Cream) 0 gm TOP BIDPRN PRN PRN Reason: Dry Skin Pantoprazole Sodium (Protonix) 40 mg PO DAILY [facility] Last Admin: 08/28/18 09:05 Dose: 40 mg Potassium Chloride (Klor-Con 10) 10 meq PO DAILY [facility] Last Admin: 08/28/18 09:04 Dose: 10 meq Sodium Chloride ([place] Nasal [place] 0.65%) 0 ml EA NARE QIDPRN PRN PRN Reason: Nasal Congestion Sodium Chloride (Flush - Normal Saline) 10 ml IVF Q12HR [facility] Last Admin: 08/28/18 09:05 Dose: 10 ml Sodium Chloride (Flush - Normal Saline) 10 ml IVF PRN PRN PRN Reason: Saline Flush Temazepam (Restoril) 15 mg PO HSPRN PRN PRN Reason: Insomnia Throat Lozenges (Cepastat Lozenges) 1 mamadou PO Q2H PRN PRN Reason: Sore Throat
[2018-08-28] MEDS: Potassium Chloride 30 MEQ in Sodium Chloride 0.9% 1,000 ML IV SCH (15:21)
[2018-08-28] MEDS ORDERED: Furosemide 40 MG/4 ML VIAL SLOW IVP SCH (16:45)
[2018-08-29 06:24] LABS: ALT (SGPT) 18 U/L (8-55); AST (SGOT) 17 U/L (5-34); Albumin 1.3 g/dL (3.4-4.8); Alkaline Phosphatase 131 U/L (40-150); Anion Gap 6 mmol/L (10-20); BUN (Urea Nitrogen) 25 mg/dL (8.4-25.7); Band 1 % (5-11); Bilirubin, Total 0.7 mg/dL (0.2-1.2); Calc. Creatinine Clearance 49 mL/min (70-130); Calcium 7.3 mg/dL (7.8-10.44); Carbon Dioxide 29 mmol/L (23-31); Chloride 101 mmol/L (98-107); Estimated GFR-MDRD 46; Globulin 3.8 g/dL (2.4-3.5); Glucose 64 mg/dL (83-110); Hemoglobin 7.5 g/dL (14.0-18.0); Hypochromia SLIGHT = 6-15 cells (100X) (0-5/hpf); Iron 62 ug/dL (65-175); Lymphocytes 10 % (21-51); MDiff Complete? YES; Mean Corpuscular HGB CONC 30.8 g/dL (32.0-36.0); Mean Corpuscular Hemoglobin 27.2 pg (27.0-31.0); Mean Corpuscular Volume 88.2 fL (78.0-98.0); Mean Platelet Volume 7.8 fL (7.4-10.4); Monocytes 9 % (0-10); Neutrophil 80 % (42-75); Platelet Count 219 thou/uL (130-400); Platelet Morphology Comment Appears Adequate; Potassium 4.1 mmol/L (3.5-5.1); Protein, Total 5.1 g/dL (5.8-8.1); RBC Distribution Width 16.5 % (11.5-14.5); Red Blood Cell (RBC) Count 2.76 mill/uL (4.70-6.10); Sodium 132 mmol/L (136-145); Target Cells SLIGHT = 2-5 cells (100X) (0-1/hpf); White Blood Cell (WBC) Count 8.1 thou/uL (4.8-10.8)
[2018-08-29 06:48] LABS: Iron Binding Capacity, Total 58 mcg/dL (261-462)
[2018-08-29] MEDS: Enoxaparin Sodium 30 MG/0.3 ML SYRINGE SC SCH (09:45)
[2018-08-29] MEDS: Folic Acid 1 MG TAB PO SCH (09:46)
[2018-08-29] MEDS: Potassium Chloride 10 MEQ TAB PO SCH (09:46)
[2018-08-29] MEDS: Pantoprazole 40 MG GRANULES PACKET PO SCH (09:46)
[2018-08-29] MEDS: Finasteride 5 MG TAB PO SCH (09:46)
[2018-08-29] MEDS: Metoclopramide HCl 10 MG TAB PO SCH ×4 (09:46→20:10)
[2018-08-29] MEDS: Midodrine HCl 5 MG TAB PO SCH ×3 (09:46→20:16)
--- NOTE | 2018-08-29 10:00 | PRG ---
DATE OF SERVICE: 08/29/2018 SUBJECTIVE: A 73-year-old gentleman. This morning, he is better, less short of breath. He wants to go home. OBJECTIVE: VITAL SIGNS: Saturations are 96%_ on room air, temperature 97, pulse 88, respiratory rate 18, and blood pressure 132/63. CHEST: Decreased breath sounds. No wheezing. CARDIAC: Normal S1, S2. No gallop. ABDOMEN: No masses. LABORATORY DATA: Creatinine 1.76 at baseline elevation. Lytes are normal. White count 8000, H and H unremarkable. IMPRESSION: 1. Pneumonia. 2. Pleural effusion. 3. Congestive heart failure. PLAN: Switch over to oral antibiotics. Can probably be transferred back to the [facility]. Job ID: [id number] MTDD
--- NOTE | 2018-08-29 10:05 | PDOC.PN ---
- Subjective Encounter Start Date: 08/29/18 Encounter Start Time: 07:20 Patient seen and examined. No new complaints. No overnight events - Objective Resuscitation Status - Order Detail: 08/26/18 23:35 Resuscitation Status Routine Resuscitation Status: FULL: Full Resuscitation MAR Reviewed: Yes Vital Signs & Weight: Vital Signs (12 hours) Temp Pulse Resp BP 08/29/18 04:18 97.5 F L 80 18 132/63 Weight Admit Weight 196 lb 1.6 oz Weight 202 lb 3.2 oz I&O: 08/28/18 08/29/18 08/30/18 06:59 06:59 06:59 Intake Total 1540 1835 Output Total 450 750 Balance 1090 1085 Result Diagrams: 08/29/18 05:17 08/29/18 05:17 Phys Exam - Physical Examination Constitutional: NAD HEENT: PERRLA, moist MMs, sclera anicteric Neck: no JVD, supple Respiratory: no wheezing, no rales, no rhonchi Cardiovascular: RRR, no significant murmur, no rub Gastrointestinal: soft, non-tender, no distention Musculoskeletal: pulses present, edema present Neurological: non-focal, normal sensation Lymphatic: no nodes wound vac in place Psychiatric: normal affect Skin: no rash, normal turgor Dx/Plan (1) Acute kidney failure Status: Acute (2) Anemia, normocytic normochromic Code(s): D64.9 - ANEMIA, UNSPECIFIED Status: Acute (3) Bilateral pleural effusion Code(s): J90 - PLEURAL EFFUSION, NOT ELSEWHERE CLASSIFIED Status: Acute (4) Consolidation of right lower lobe of lung Code(s): J18.1 - LOBAR PNEUMONIA, UNSPECIFIED ORGANISM Status: Acute (5) Decubitus ulcer Code(s): L89.90 - PRESSURE ULCER OF UNSPECIFIED SITE, UNSPECIFIED STAGE Status : Acute Qualifiers: Pressure injury location: sacral region Pressure injury stage: stage 4 Qualified Code(s): L89.154 - Pressure ulcer of sacral region, stage 4 Comment: present on admission (6) Hypoalbuminemia Code(s): E88.09 - OT DISORDERS OF PLASMA-PROTEIN METABOLISM, NEC Status: Acute (7) Hypokalemia Code(s): E87.6 - HYPOKALEMIA Status: Acute (8) Hypomagnesemia Code(s): E83.42 - HYPOMAGNESEMIA Status: Acute (9) Hyponatremia Code(s): E87.1 - HYPO-OSMOLALITY AND HYPONATREMIA Status: Acute (10) Hypotension Status: Acute (11) Left lower lobe pulmonary nodule Code(s): R91.1 - SOLITARY PULMONARY NODULE Status: Acute (12) Type 2 dissection of thoracic aorta Code(s): I71.01 - DISSECTION OF THORACIC AORTA Status: Acute (13) 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 Review of Systems - Review of Systems ENT: negative: Ear Pain, Ear Discharge, Nose Pain, Nose Discharge, Nose Congestion, Mouth Pain, Mouth Swelling, Throat Pain, Throat Swelling, Other Respiratory: negative: Cough, Dry, Shortness of Breath, Hemoptysis, SOB with Excertion, Pleuritic Pain, Sputum, Wheezing Cardiovascular: negative: chest pain, palpitations, orthopnea, paroxysmal nocturnal dyspnea, edema, light headedness, other Gastrointestinal: negative: Nausea, Vomiting, Abdominal Pain, Diarrhea, Constipation, Melena, Hematochezia, Other Genitourinary: negative: Dysuria, Frequency, Incontinence, Hematuria, Retention , Other Musculoskeletal: negative: Neck Pain, Shoulder Pain, Arm Pain, Back Pain, Hand Pain, Leg Pain, Foot Pain, Other - Medications/Allergies Allergies/Adverse Reactions: Allergies Allergy/AdvReac Type Severity Reaction Status Date / Time No Known Drug Allergies Allergy Verified 08/26/18 22:55 Medications: Current Medications Acetaminophen (Tylenol) 500 mg PO Q6H PRN PRN Reason: Mild Pain (1-3) Acetaminophen/Codeine Phosphate (Tylenol #3) 1 tab PO Q6H PRN PRN Reason: PAIN 4-10 Last Admin: 08/28/18 15:21 Dose: 1 tab Artificial Tears (Tears Naturale) 2 drop EA EYE PRN PRN PRN Reason: Dry Eyes Bisacodyl (Dulcolax) 10 mg PO DAILYPRN PRN PRN Reason: Constipation Calcium Carbonate (Tums) 1,000 mg PO Q4H PRN PRN Reason: Heartburn or Indigestion Cefdinir (Omnicef) 300 mg PO BID [facility] Stop: 09/03/18 21:01 Enoxaparin Sodium (Lovenox) 30 mg SC 09 [facility] Last Admin: 08/29/18 09:45 Dose: 30 mg Finasteride (Proscar) 5 mg PO DAILY [facility] Last Admin: 08/29/18 09:46 Dose: 5 mg Folic Acid (Folvite) 1 mg PO DAILY [facility] Last Admin: 08/29/18 09:46 Dose: 1 mg Guaifenesin (Robitussin Sf) 200 mg PO Q4H PRN PRN Reason: Cough Last Admin: 08/28/18 09:15 Dose: 200 mg Hydralazine HCl (Apresoline) 10 mg SLOW IVP Q4H PRN PRN Reason: SBP > 180 and HR < 70 Loperamide HCl (Imodium) 2 mg PO PRN PRN PRN Reason: Diarrhea/Loose Stools Loratadine (Claritin) 10 mg PO DAILYPRN PRN PRN Reason: Sinus Symptoms Metoclopramide HCl (Reglan) 10 mg PO QID [facility] Last Admin: 08/29/18 09:46 Dose: 10 mg Metoclopramide HCl (Reglan) 5 mg IVP Q4H PRN PRN Reason: Nausea Midodrine (Proamatine) 5 mg PO TID [facility] Last Admin: 08/29/18 09:46 Dose: 5 mg Mineral Oil/White Petrolatum (Eucerin Cream) 0 gm TOP BIDPRN PRN PRN Reason: Dry Skin Pantoprazole Sodium (Protonix) 40 mg PO DAILY [facility] Last Admin: 08/29/18 09:46 Dose: 40 mg Potassium Chloride (Klor-Con 10) 10 meq PO DAILY [facility] Last Admin: 08/29/18 09:46 Dose: 10 meq Sodium Chloride ([place] Nasal [place] 0.65%) 0 ml EA NARE QIDPRN PRN PRN Reason: Nasal Congestion Sodium Chloride (Flush - Normal Saline) 10 ml IVF Q12HR [facility] Last Admin: 08/29/18 09:47 Dose: 10 ml Sodium Chloride (Flush - Normal Saline) 10 ml IVF PRN PRN PRN Reason: Saline Flush Temazepam (Restoril) 15 mg PO HSPRN PRN PRN Reason: Insomnia Throat Lozenges (Cepastat Lozenges) 1 mamadou PO Q2H PRN PRN Reason: Sore Throat
[2018-08-29] MEDS: Acetaminophen/Codeine 30-300mg Tablet PO PRN ×2 (10:16→20:10)
[2018-08-29 11:59] VITALS: BMI 28.2
[2018-08-29] MEDS: Cefepime 1 GM in Sodium Chloride 0.9% 100 ML IVPB SCH (18:48)
[2018-08-29] MEDS: Cefdinir 300 MG CAP PO SCH (20:09)
[2018-08-30 01:03] VITALS: TEMP 97.7
[2018-08-30] MEDS: Acetaminophen/Codeine 30-300mg Tablet PO PRN (02:58)
[2018-08-30 07:43] VITALS: BP 112/71
[2018-08-30] MEDS: Finasteride 5 MG TAB PO SCH (07:46)
[2018-08-30] MEDS: Cefdinir 300 MG CAP PO SCH (07:46)
[2018-08-30] MEDS: Midodrine HCl 5 MG TAB PO SCH (07:46)
[2018-08-30] MEDS: Folic Acid 1 MG TAB PO SCH (07:46)
[2018-08-30] MEDS: Enoxaparin Sodium 30 MG/0.3 ML SYRINGE SC SCH (07:46)
[2018-08-30] MEDS: Potassium Chloride 10 MEQ TAB PO SCH (07:47)
[2018-08-30] MEDS: Metoclopramide HCl 10 MG TAB PO SCH ×2 (07:47→12:24)
[2018-08-30] MEDS: Pantoprazole 40 MG GRANULES PACKET PO SCH (07:47)
--- NOTE | 2018-08-30 08:50 | PRG ---
DATE OF SERVICE: 08/30/2018 This morning, awake, alert, and responsive. He is eager to go home. He remains afebrile. OBJECTIVE: VITAL SIGNS: Pulse 86, respiratory rate 18, saturations 92% on room air, and blood pressure 112/71. CHEST: Decreased breath sounds. No crackles. CARDIAC: Normal S1, S2. No gallops. ABDOMEN: Soft, bilateral pleural effusion, right greater than left, possibly superimposed pneumonia. All cultures are negative. Discharge home on present medication. Follow up with the primary care physician. Job ID: [id number]
--- NOTE | 2018-08-30 10:06 | PDOC.PN ---
- Subjective Encounter Start Date: 08/30/18 Encounter Start Time: 07:10 Patient seen and examined. No new complaints. No overnight events - Objective Resuscitation Status - Order Detail: 08/26/18 23:35 Resuscitation Status Routine Resuscitation Status: FULL: Full Resuscitation MAR Reviewed: Yes Vital Signs & Weight: Vital Signs (12 hours) Temp Pulse Resp BP Pulse Ox 08/30/18 08:00 92 L 08/30/18 07:42 97.7 F 86 18 112/71 92 L 08/30/18 01:01 97.7 F 87 18 104/64 97 Weight Admit Weight 196 lb 1.6 oz Weight 201 lb 8 oz I&O: 08/29/18 08/30/18 08/31/18 06:59 06:59 06:59 Intake Total 1835 850 Output Total 750 540 Balance 1085 310 Result Diagrams: 08/29/18 05:17 08/29/18 05:17 Phys Exam - Physical Examination Constitutional: NAD HEENT: PERRLA, moist MMs, sclera anicteric Neck: no JVD, supple Respiratory: no wheezing, no rales, no rhonchi Cardiovascular: RRR, no significant murmur, no rub Gastrointestinal: soft, non-tender, no distention, positive bowel sounds Musculoskeletal: no edema, pulses present wound vac in place Neurological: non-focal Lymphatic: no nodes Psychiatric: normal affect, A&O x 3 Skin: no rash, normal turgor Dx/Plan (1) Acute kidney failure Status: Acute (2) Anemia, normocytic normochromic Code(s): D64.9 - ANEMIA, UNSPECIFIED Status: Acute (3) Bilateral pleural effusion Code(s): J90 - PLEURAL EFFUSION, NOT ELSEWHERE CLASSIFIED Status: Acute (4) Consolidation of right lower lobe of lung Code(s): J18.1 - LOBAR PNEUMONIA, UNSPECIFIED ORGANISM Status: Acute (5) Decubitus ulcer Code(s): L89.90 - PRESSURE ULCER OF UNSPECIFIED SITE, UNSPECIFIED STAGE Status : Acute Qualifiers: Pressure injury location: sacral region Pressure injury stage: stage 4 Qualified Code(s): L89.154 - Pressure ulcer of sacral region, stage 4 Comment: present on admission (6) Hypoalbuminemia Code(s): E88.09 - OTH DISORDERS OF PLASMA-PROTEIN METABOLISM, NEC Status: Acute (7) Hypokalemia Code(s): E87.6 - HYPOKALEMIA Status: Acute (8) Hypomagnesemia Code(s): E83.42 - HYPOMAGNESEMIA Status: Acute (9) Hyponatremia Code(s): E87.1 - HYPO-OSMOLALITY AND HYPONATREMIA Status: Acute (10) Hypotension Status: Acute (11) Left lower lobe pulmonary nodule Code(s): R91.1 - SOLITARY PULMONARY NODULE Status: Acute (12) Type 2 dissection of thoracic aorta Code(s): I71.01 - DISSECTION OF THORACIC AORTA Status: Acute (13) 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 Review of Systems - Review of Systems ENT: negative: Ear Pain, Ear Discharge, Nose Pain, Nose Discharge, Nose Congestion, Mouth Pain, Mouth Swelling, Throat Pain, Throat Swelling, Other Respiratory: negative: Cough, Dry, Shortness of Breath, Hemoptysis, SOB with Excertion, Pleuritic Pain, Sputum, Wheezing Cardiovascular: negative: chest pain, palpitations, orthopnea, paroxysmal nocturnal dyspnea, edema, light headedness, other Gastrointestinal: negative: Nausea, Vomiting, Abdominal Pain, Diarrhea, Constipation, Melena, Hematochezia, Other Genitourinary: negative: Dysuria, Frequency, Incontinence, Hematuria, Retention , Other Musculoskeletal: negative: Neck Pain, Shoulder Pain, Arm Pain, Back Pain, Hand Pain, Leg Pain, Foot Pain, Other - Medications/Allergies Allergies/Adverse Reactions: Allergies Allergy/AdvReac Type Severity Reaction Status Date / Time No Known Drug Allergies Allergy Verified 08/26/18 22:55 Medications: Current Medications Acetaminophen (Tylenol) 500 mg PO Q6H PRN PRN Reason: Mild Pain (1-3) Acetaminophen/Codeine Phosphate (Tylenol #3) 1 tab PO Q6H PRN PRN Reason: PAIN 4-10 Last Admin: 08/30/18 02:58 Dose: 1 tab Artificial Tears (Tears Naturale) 2 drop EA EYE PRN PRN PRN Reason: Dry Eyes Bisacodyl (Dulcolax) 10 mg PO DAILYPRN PRN PRN Reason: Constipation Calcium Carbonate (Tums) 1,000 mg PO Q4H PRN PRN Reason: Heartburn or Indigestion Cefdinir (Omnicef) 300 mg PO BID [facility] Stop: 09/03/18 21:01 Last Admin: 08/30/18 07:46 Dose: 300 mg Enoxaparin Sodium (Lovenox) 30 mg SC 0900 [facility] Last Admin: 08/30/18 07:46 Dose: 30 mg Finasteride (Proscar) 5 mg PO DAILY [facility] Last Admin: 08/30/18 07:46 Dose: 5 mg Folic Acid (Folvite) 1 mg PO DAILY [facility] Last Admin: 08/30/18 07:46 Dose: 1 mg Guaifenesin (Robitussin Sf) 200 mg PO Q4H PRN PRN Reason: Cough Last Admin: 08/28/18 09:15 Dose: 200 mg Hydralazine HCl (Apresoline) 10 mg SLOW IVP Q4H PRN PRN Reason: SBP > 180 and HR < 70 Loperamide HCl (Imodium) 2 mg PO PRN PRN PRN Reason: Diarrhea/Loose Stools Loratadine (Claritin) 10 mg PO DAILYPRN PRN PRN Reason: Sinus Symptoms Metoclopramide HCl (Reglan) 10 mg PO QID [facility] Last Admin: 08/30/18 07:47 Dose: 10 mg Metoclopramide HCl (Reglan) 5 mg IVP Q4H PRN PRN Reason: Nausea Midodrine (Proamatine) 5 mg PO TID [facility] Last Admin: 08/30/18 07:46 Dose: 5 mg Mineral Oil/White Petrolatum (Eucerin Cream) 0 gm TOP BIDPRN PRN PRN Reason: Dry Skin Pantoprazole Sodium (Protonix) 40 mg PO DAILY [facility] Last Admin: 08/30/18 07:47 Dose: 40 mg Potassium Chloride (Klor-Con 10) 10 meq PO DAILY [facility] Last Admin: 08/30/18 07:47 Dose: 10 meq Sodium Chloride ([place] Nasal [place] 0.65%) 0 ml EA NARE QIDPRN PRN PRN Reason: Nasal Congestion Sodium Chloride (Flush - Normal Saline) 10 ml IVF Q12HR [facility] Last Admin: 08/30/18 07:47 Dose: 10 ml Sodium Chloride (Flush - Normal Saline) 10 ml IVF PRN PRN PRN Reason: Saline Flush Temazepam (Restoril) 15 mg PO HSPRN PRN PRN Reason: Insomnia Last Admin: 08/29/18 20:09 Dose: 15 mg Throat Lozenges (Cepastat Lozenges) 1 mamadou PO Q2H PRN PRN Reason: Sore Throat
--- NOTE | 2018-08-30 10:15 | DIS ---
DATE OF ADMISSION: 08/26/2018 DATE OF DISCHARGE: 08/30/2018 PRIMARY CARE PHYSICIAN: [facility] call admission. DISCHARGE DISPOSITION: Home with home health. PRIMARY DISCHARGE DIAGNOSES: Community-acquired pneumonia, right lower lobe; bilateral pleural effusion due to hypoalbuminemia; acute kidney failure on baseline chronic kidney disease, stage 3; hypotension due to orthostatic hypotension; left lower lobe pulmonary nodule. SECONDARY DISCHARGE DIAGNOSES: Bed-bound status, chronic dissection of the thoracic aorta, multiple pulmonary nodules, hyponatremia, hypomagnesemia, hypokalemia, hypoalbuminemia, and decubitus ulcer present on admission, normocytic normochromic anemia. PRIMARY PROCEDURE/OPERATION: None. RADIOLOGICAL INVESTIGATION: Echocardiography showed normal EF. Chest x-ray showed bilateral pleural effusions. SIGNIFICANT LABORATORY DATA: Hemoglobin 7.5. INR 1.5 and creatinine 1.76. TIBC 58, ferritin 1442, AST 17, ALT 18, albumin 1.3. B12 and folate normal. Cortisol normal. Urinalysis, suggestive of UTI. DISCHARGE MEDICATIONS: 1. Proscar 5 mg p.o. daily. 2. Folic acid 1 mg p.o. daily. 3. Reglan 10 mg q.i.d. 4. Protonix 40 mg p.o. daily. 5. Potassium chloride 10 mEq p.o. daily. 6. Omnicef 300 mg b.i.d. 7. Lasix 20 mg daily. 8. Multivitamin one tablet daily. 9. Thiamine 100 mg daily. 10. Tylenol No. 3 one tablet q.6 hourly p.r.n. CONTRAINDICATION: None. CODE STATUS: Full code. 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 Barahona was following while in the hospital. Dr. Mari was following while in hospital. TEST RESULTS PENDING ON DISCHARGE: None. ALLERGIES: NO KNOWN DRUG ALLERGIES. DISCHARGE PLAN: Posthospital, the patient will be discharged home with home health and subsequently, he will follow up with primary care physician. HOSPITAL COURSE: A 73-year-old male who was recently hospitalized in [facility] as well as in [facility], and he was at home with home health. He has advanced decubitus ulcer, requiring wound VAC. He was admitted to the hospital for pneumonia. He was also found with bilateral pulmonary nodule as well as bilateral pleural effusions. He has significant hypoalbuminemia from protein-calorie malnutrition, that was contributing to his edema and pleural effusion. He also had [id number] kidney failure. He required some IV fluid while in the hospital. We discontinued diuretic therapy while in hospital, but resumed the low dose on discharge. While in hospital, we ruled out adrenal insufficiency. It is unclear why he has significant hypoalbuminemia at this point. Based on urinalysis, he does not have any nephrotoxic syndrome. He does have advanced decubitus ulcer on sacrum area, and our Wound Care Team was following while in hospital. During this admission, we treated his pneumonia with Rocephin, Levaquin, and on discharge, we changed to Omnicef. Pulmonary group was following, and they recommended outpatient followup. 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 We tried to discharge this patient to custodial home versus rehab, but this patient did not want to go to any custodial home or rehab, and that is why we decided to let him go to home with home health. The patient is seen and examined at bedside today. Please see my progress note from today for further detail. The patient is at high risk for recurrent admission because of multiple comorbidities and his age. Job ID: [id number]
[2018-08-30 10:17] LABS: #Eosinphils 0.1 thou/uL (0.0-0.7); #Lymphocytes 0.9 thou/uL (1.20-3.40); #Monocytes 1.1 thou/uL (0.11-0.59); #Neutrophils 6.8 thou/uL (1.40-6.50); %Basophils 0.3 % (0.0-1.0); %Eosinophils 1.1 % (0.0-10.0); %Lymphocytes 9.9 % (21.0-51.0); %Monocytes 12.2 % (0.0-10.0); %Neutrophils 76.5 % (42.0-75.0); Hemoglobin 7.7 g/dL (14.0-18.0); Mean Corpuscular HGB CONC 30.5 g/dL (32.0-36.0); Mean Corpuscular Hemoglobin 27.3 pg (27.0-31.0); Mean Corpuscular Volume 89.5 fL (78.0-98.0); Mean Platelet Volume 7.8 fL (7.4-10.4); Platelet Count 230 thou/uL (130-400); RBC Distribution Width 16.6 % (11.5-14.5); Red Blood Cell (RBC) Count 2.82 mill/uL (4.70-6.10); White Blood Cell (WBC) Count 8.9 thou/uL (4.8-10.8)
[2018-08-30 10:28] LABS: Anion Gap 10 mmol/L (10-20); BUN (Urea Nitrogen) 23 mg/dL (8.4-25.7); Calc. Creatinine Clearance 60 mL/min (70-130); Calcium 7.7 mg/dL (7.8-10.44); Carbon Dioxide 26 mmol/L (23-31); Chloride 99 mmol/L (98-107); Estimated GFR-MDRD 58; Glucose 91 mg/dL (83-110); Sodium 131 mmol/L (136-145)
[2018-08-30 10:35] LABS: Hypochromia SLIGHT = 6-15 cells (100X) (0-5/hpf); MDiff Complete? YES; Polychromasia SLIGHT = 2-3 cells (100X) (0-2/hpf)
[2018-09-02 15:11] LABS: A/G Ratio 0.4 (0.7-1.7); Albumin 1.4 g/dL (2.9-4.4); Alpha 1 0.2 g/dL (0.0-0.4); Alpha 2 0.5 g/dL (0.4-1.0); Beta 0.7 g/dL (0.7-1.3); Gamma 2.6 g/dL (0.4-1.8); M-Spike Not Observed g/dL (Not Observed); Protein Electrophoresis Intrp Note: (.)
== END 2018-08-30 13:27 | disposition home health service (06) | DRG 193 ==
LOC: ERS 17:13 → 2NO 22:04 → OBSVTOIN 22:04 → T4-B 08-29 14:44
PROVIDERS: ADMIT Internal Medicine; ATTEND Internal Medicine
DX: J18.1 Lobar pneumonia, unspecified organism (principal); L89.154 Pressure ulcer of sacral region, stage 4; I71.01 Dissection of thoracic aorta; N17.9 Acute kidney failure, unspecified; E87.1 Hypo-osmolality and hyponatremia; J44.0 Chronic obstructive pulmonary disease with (acute) lower respiratory infection; J90 Pleural effusion, not elsewhere classified; E46 Unspecified protein-calorie malnutrition; I13.0 Hypertensive heart and chronic kidney disease with heart failure and stage 1 through stage 4 chronic kidney disease, or unspecified chronic kidney disease; R35.1 Nocturia; M19.90 Unspecified osteoarthritis, unspecified site; I95.1 Orthostatic hypotension; N18.3 Chronic kidney disease, stage 3 (moderate); D63.1 Anemia in chronic kidney disease; E86.0 Dehydration; E87.6 Hypokalemia; R91.1 Solitary pulmonary nodule; I50.9 Heart failure, unspecified; Z87.891 Personal history of nicotine dependence; Z93.3 Colostomy status; Z79.899 Other long term (current) drug therapy; Z74.01 Bed confinement status
CPT/HCPCS: 36415; 71045; 80048; 80053; 81003; 81015; 82533; 82550; 82570; 82607; 82728; 82746; 83540; 83550; 83605; 83735; 83880; 84100; 84156; 84165; 84484; 85025; 85610; 87040; 93005; 93306; 96361; 96365; 96367; J0456; J0692; J0696; J1100; J1650; J1940; J1956; J2543; J3370; J3475; J3480; J3490; J7050; J8597